=== PATIENT | male | born 1975 | race Caucasian/White ===

== ENCOUNTER 2017-02-13 19:27 | Emergency (ER) | payer OTHER ==
[2017-02-13 19:50] VITALS: BP 140/93
--- NOTE | 2017-02-14 04:56 | ED.ADGEN ---
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 Patient had arthroscopic surgery of right hip with repair labrum earlier this afternoon. Patient had bulky gauze bandage placed over surgical site. This evening, the patient states he twisted and a large amount of bright red blood gushed into the bandage. Zoll. Patient denies any drugs or complaints at this time. Review of Systems Review of Systems ROS as per HPI. Physical Exam Physical Exam Constitutional: Well developed, well nourished, no acute distress, non-toxic appearance. HENT: Normocephalic, atraumatic, bilateral external ears normal, oropharynx moist, no oral exudates, nose normal. Extremities: , Dried blood located on Steri-Strips upon bandage removal. No active bleeding or wound dehiscence. Appropriate postsurgical tenderness noted. Neurologic: Alert and oriented X 3, normal motor function, normal sensory function, no focal deficits noted. Psychologic: Affect normal, judgement normal, mood normal. Current Patient Data Vital Signs Vital Signs Date Time Temp Pulse Resp B/P (MAP) Pulse Ox O2 Delivery O2 Flow Rate FiO2 02/13/17 19:50 97.8 98 20 96 Room Air EKG EKG [] Radiology/Procedures Radiology/Procedures [] Course & Med Decision Making Course & Med Decision Making Pertinent Labs and Imaging studies reviewed. (See chart for details) [Postoperative bleeding resolved. Bandage changed. Patient instructed follow postsurgical instructions follow-up with orthopedic doctor tomorrow as needed.] Final Impression Final Impression [1. Postoperative bleeding] Problems: Dragon Disclaimer Dragon Disclaimer This electronic medical record was generated, in whole or in part, using a voice recognition dictation system. ELVIE SERRANO DO Feb 14, 2017 04:56
== END 2017-02-13 20:20 | disposition home or self-care (01) ==
LOC: ER 19:27
DX: K91.841 Postprocedural hemorrhage of a digestive system organ or structure following other procedure (principal)
CPT/HCPCS: 99283

== ENCOUNTER 2017-02-16 16:01 | Emergency (ER) | payer OTHER ==
[2017-02-16 16:10] VITALS: BP 130/95
--- NOTE | 2017-02-16 16:44 | PHYS DOC ---
Past History Past Medical History: No Pertinent History Past Surgical History: Other Alcohol Use: None Drug Use: None Adult General Chief Complaint Chief Complaint: postoperative bleeding HPI HPI Patient is a 41-year-old male who presents on crutches with his driving with the complaint of bleeding from his right hip surgical incisions. The patient had hip surgery on February 13. He has small incisions. He has been nonweightbearing on crutches, doing very little except for getting up to the bathroom. He had some bleeding on his incisions the first day and had it rechecked. Today, he had some bleeding from 2 of his 3 incisions that has soaked his bandage with blood and is concerning. He had been instructed that he could stop wearing the bandage today but he is continuing to bleed. He has not injured the area. He denies fever or chills. Denies increase in pain. Ortho Dr. Fall Review of Systems Review of Systems Constitutional: Denies fever or chills [] Musculoskeletal: Denies back pain or joint pain [] Integument: Denies rash or skin lesions [] Physical Exam Physical Exam Constitutional: Well developed, well nourished, no acute distress, non-toxic appearance. Alert, mentating normally. HENT: Normocephalic, atraumatic, bilateral external ears normal, nose normal. [ ] Eyes: conjunctiva normal, no discharge. [] Neck: Normal range of motion, no stridor. [] Skin: Warm, dry, no erythema, no rash. [] Extremities: No tenderness, no cyanosis, no clubbing, ROM intact, no edema. Right lateral hip area: There is a dressing taped in place that has some fresh blood and a small amount of old, dark blood on the dressing. A relatively small amount of blood overall, I would estimate less than or equal to 5 ML. The dressing was removed. There are 3 incisions. One is dry. The middle incision has had some recent red blood which is on the Steri-Strip. No blood is able to be expressed with gentle pressure. The lower incision has had a small amount of dark red blood and does have a little bit coming out which was wiped away with gauze. The skin of the operative area appears healthy. There is some ecchymosis which appears normal. There is no evidence of cellulitis, no swelling, no evidence of palpable or visible hematoma or seroma. Neurologic: Alert and oriented X 3, normal motor function, normal sensory function, no focal deficits noted. [] EKG EKG [] Radiology/Procedures Radiology/Procedures [] Course & Med Decision Making Course & Med Decision Making Pertinent Labs and Imaging studies reviewed. (See chart for details) 41-year-old male postop day 3 from some right hip surgery presents with some bright red blood and a little bit of dark blood on his incisions. He is not currently bleeding on evaluation. The amount of bleeding has been small. Although he was told he would likely be able to go without a bandage by now, I reassured him that this amount of blood and appearance of bleeding does not concern me at this time, I believe he can still continue to wear a bandage as needed and follow-up as planned. Bandage was replaced by ED nursing staff. [] Dragon Disclaimer Dragon Disclaimer This chart was dictated in whole or in part using Voice Recognition software in a busy, high-work load, and often noisy Emergency Department environment. It may contain unintended and wholly unrecognized errors or omissions. Departure Departure: Impression: Primary Impression: Postoperative bleeding from incision Disposition: 01 HOME, SELF-CARE Condition: STABLE Referrals: PCP,UNKNOWN (PCP) Additional Instructions: At this time, your postoperative bleeding does not appear abnormal or concerning. Continue to limit activity and protect your operating site. Continue to wear absorbent bandage as long as your incisions continue to have some bleeding. Keep your follow-up appointment as scheduled. RADHA ZIMMERMAN MD Feb 16, 2017 16:43
== END 2017-02-16 17:05 | disposition home or self-care (01) ==
LOC: ER 16:01
DX: M96.831 Postprocedural hemorrhage of a musculoskeletal structure following other procedure (principal)
CPT/HCPCS: 99283

== ENCOUNTER 2017-08-20 16:51 | Emergency (ER) | payer OTHER ==
[2017-08-20] MEDS ORDERED: IV NORMAL SALINE 1,000ML 1,000 ML IV SCH (17:30)
[2017-08-20] MEDS ORDERED: 0.9 % SODIUM CHLORIDE 10 ML DISP.SYRIN. IV PRN (17:30)
[2017-08-20] MEDS ORDERED: KETOROLAC 30 MG/ML VIAL. IV ONE (17:30)
--- NOTE | 2017-08-20 17:37 | PHYS DOC ---
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 Patient says the pain began gradually in the left lower quadrant described as a dull ache that has gotten progressively worse with localizing pain and sharp and stabbing in nature lasting 3-5 seconds and residual dull ache that is about moderate 7 of 10. He is also complaining of mild back pain now radiates up the mid back. The pains abdomen does not radiate across the right lower abdomen there are no UTI symptoms associated with it, no vomiting or diarrhea but there is mild nausea. Patient denies any fevers or chills, denies any direct trauma, antibiotics or hematuria. Patient further denies any direct trauma to the back although the back pain is not worsened with position it is worsened with rotational motion. Patient denies any night sweats, weight loss or travel outside the country. He denies any bowel or bladder incontinence with the back pain. He does not use IV drugs denies any rash or joint swelling. Review of Systems Review of Systems Constitutional: Denies fever or chills [] Eyes: Denies change in visual acuity, redness, or eye pain [] HENT: Denies nasal congestion or sore throat [] Respiratory: Denies cough or shortness of breath [] Cardiovascular: No additional information not addressed in HPI [] GI: Patient does complain of abdominal pain in the left lower quadrant with nausea but no vomiting diarrhea or bloody stools or constipation. He says his stools are "" normal : Denies dysuria or hematuria [] Musculoskeletal: Positive for back pain without night sweats weight loss or focal neurologic deficits Integument: Denies rash or skin lesions [] Neurologic: Denies headache, focal weakness or sensory changes [] Endocrine: Denies polyuria or polydipsia [] All other systems were reviewed and found to be within normal limits, except as documented in this note. Allergies Allergies Allergies Coded Allergies Type Severity Reaction Last Updated Verified Penicillins Allergy Unknown 08/20/17 Yes Physical Exam Physical Exam Of the vital signs recorded on the chart patient noted to be hypertensive. Constitutional: Well developed, well nourished, no acute distress, non-toxic appearance patient is lying flat for comfort. [] HENT: Normocephalic, atraumatic, bilateral external ears normal, oropharynx moist, no oral exudates, nose normal. [] Eyes: PERRLA, EOMI, conjunctiva normal, Cardiovascular:Heart rate regular rhythm, no murmur [] Lungs & Thorax: Bilateral breath sounds clear to auscultation [] Abdomen: Bowel sounds normal, patient has tenderness to palpation without masses pulsatile masses or rebound in the left lower quadrant. He does have some voluntary guarding. There is no Flor's or McBurney's point tenderness to palpation. He has negative heel tap Skin: Warm, dry, no erythema, no rash. [] Back: Mild midline tenderness to palpation over the thoracic spine over the erector spinae muscles. [] Extremities: No tenderness, no cyanosis, no clubbing, ROM intact, no edema. [] Neurologic: Alert and oriented X 3, normal motor function, normal sensory function, no focal deficits noted. [] Psychologic: Affect normal, judgement normal, mood normal. [] EKG EKG [] Radiology/Procedures Radiology/Procedures [] [place] [address] IMAGING REPORT Signed PATIENT: OLGA FLORENCE ACCOUNT: [id number] : 1975 LOCATION: ER AGE: 41 SEX: M EXAM STATUS: REG ER ORD. PHYSICIAN: ATUL ROQUE MD REASON: llq ab pain PROCEDURE: CT ABDOMEN PELVIS WO CONTRAST PQRS Compliance Statement: One or more of the following individualized dose reduction techniques were utilized for this examination: 1. Automated exposure control 2. Adjustment of the mA and/or kV according to patient size 3. Use of iterative reconstruction technique CT abdomen/pelvis without contrast 08/20/2017 5:41 PM INDICATION: Bilateral flank pain. Left lower quadrant pain. COMPARISON: None available TECHNIQUE: Multiple axial CT images of the abdomen and pelvis were obtained without intravenous contrast. Coronal and sagittal reformats are provided. FINDINGS: Visualized portions of the lung bases are clear. Heart size is within normal limits. Evaluation of the solid abdominal viscera is limited by lack of intravenous contrast. No suspicious hepatic masses are identified. Spleen, bilateral adrenal glands, and pancreas are normal in appearance. Gallbladder is present without adjacent inflammatory changes. Abdominal aorta is normal in course and caliber. There are no pathologically enlarged lymph nodes in abdomen or pelvis. There is no free fluid or free intraperitoneal air. Kidneys are symmetric in appearance. No renal calculi are identified. There is no hydronephrosis. No calculi are identified in the kidneys, ureters or urinary bladder. Small bladder diverticula are identified arising from the posterior wall of the urinary bladder. Urinary bladder wall is otherwise normal in thickness given degree of distention. Small large bowel are normal in caliber. No evidence for bowel obstruction. There is focal infiltration of the pericolonic fat adjacent to the distal descending colon. Consideration may be given for a focal colitis versus epiploic appendagitis versus omental infarct. Normal appendix is visualized. No suspicious pelvic masses are identified. No suspicious osseous lesions are identified. IMPRESSION: There is focal pericolonic inflammatory changes involving though distal descending colon. Consideration may be given for epiploic appendagitis versus omental infarct. Less likely consideration would include focal colitis. Electronically signed by: Juliana Soto MD (08/20/2017 6:09 PM) [facility] DICTATED AND SIGNED BY: JULIANA SOTO MD DATE: 08/20/171803 CC: ATUL ROQUE MD; PCP,UNKNOWN ~ Course & Med Decision Making Course & Med Decision Making Pertinent Labs and Imaging studies reviewed. (See chart for details) []he presents with left lower quadrant abdominal pain with voluntary guarding on physical exam. nAcute pancreatitis. Appendicitis. Acute hepatitis. Peptic ulcer disease. Nonulcer dyspepsia. Irritable bowel disease. Functional gallbladder disorder. Sphincter of Oddi dysfunction. Diseases of the right kidney. Right-sided pneumonia. Bfjs-Fphm-Lmylel syndrome Subhepatic or intraabdominal abscess. Perforated viscus. Cardiac ischemia., Diverticulitis, diverticulosis, Black spider envenomation UTI, pyonephritis, kidney stone, abdominal aneurysm, Care will be turned over to the oncoming physician Dr. Vences we will oversee patient 's medical treatment, disposition patient based on CAT scan findings and his lab results. I reassessed patient for enema shift and told him of this change and care. Time is now 6 PM 2004; Evaluation of patient in ER showed 41-year-old male patient with left lower quadrant pain for the last 2 days that getting worse today. Patient had tenderness and rebound tenderness in left lower quadrant. Patient had stable vital signs. Patient treated with morphine and felt better and rated his pain 5/ 10. Labs was unremarkable. CT abdomen and pelvis showed left lower quadrant inflammatory process possible omental infarct or colitis. On-call surgeon Dr. Jones at [facility] consulted at 1944 and recommended to stop the Levaquin and vancomycin and transfer patient to [facility]. Dr. Collier accepted admission at 2002. Patient and his family informed about plan of care and needs for transfer. Dragon Disclaimer Dragon Disclaimer This electronic medical record was generated, in whole or in part, using a voice recognition dictation system. Departure Departure: Impression: Primary Impression: Left lower quadrant pain Disposition: 02 XFER T-TRM HOSP ([facility] at 2002) Condition: IMPROVED Referrals: PCP,UNKNOWN (PCP) ATUL ROQUE MD Aug 20, 2017 17:37 RADHA RAMOS MD Aug 20, 2017 18:44
[2017-08-20] MEDS: ONDANSETRON PF 4 MG/2 ML VIAL. IV ONE ×2 (18:09→19:10)
--- NOTE | 2017-08-20 18:12 | RAD ---
PQRS Compliance Statement: One or more of the following individualized dose reduction techniques were utilized for this examination: 1. Automated exposure control 2. Adjustment of the mA and/or kV according to patient size 3. Use of iterative reconstruction technique CT abdomen/pelvis without contrast 08/20/2017 5:41 PM INDICATION: Bilateral flank pain. Left lower quadrant pain. COMPARISON: None available TECHNIQUE: Multiple axial CT images of the abdomen and pelvis were obtained without intravenous contrast. Coronal and sagittal reformats are provided. FINDINGS: Visualized portions of the lung bases are clear. Heart size is within normal limits. Evaluation of the solid abdominal viscera is limited by lack of intravenous contrast. No suspicious hepatic masses are identified. Spleen, bilateral adrenal glands, and pancreas are normal in appearance. Gallbladder is present without adjacent inflammatory changes. Abdominal aorta is normal in course and caliber. There are no pathologically enlarged lymph nodes in abdomen or pelvis. There is no free fluid or free intraperitoneal air. Kidneys are symmetric in appearance. No renal calculi are identified. There is no hydronephrosis. No calculi are identified in the kidneys, ureters or urinary bladder. Small bladder diverticula are identified arising from the posterior wall of the urinary bladder. Urinary bladder wall is otherwise normal in thickness given degree of distention. Small large bowel are normal in caliber. No evidence for bowel obstruction. There is focal infiltration of the pericolonic fat adjacent to the distal descending colon. Consideration may be given for a focal colitis versus epiploic appendagitis versus omental infarct. Normal appendix is visualized. No suspicious pelvic masses are identified. No suspicious osseous lesions are identified. IMPRESSION: There is focal pericolonic inflammatory changes involving though distal descending colon. Consideration may be given for epiploic appendagitis versus omental infarct. Less likely consideration would include focal colitis. Electronically signed by: Allison Lopez MD (08/20/2017 6:09 PM) [facility]
--- NOTE | 2017-08-20 18:18 | EKG ---
[address] [address] Test Date: 2017-08-20 Test Time: 17:38:30 Pat Name: OLGA FLORENCE Department: Room: Gender: M Fur Farmer: JOMAR : 1975 Requested By: ATUL ROQUE Order Number: [id number] Reading MD: Measurements Intervals [place] Rate: 77 P: 38 WV: 184 QRS: 52 QRSD: 132 T: 25 QT: 382 QTc: 434 Interpretive Statements SINUS RHYTHM NON SPECIFIC INTRAVENTRICULAR BLOCK QRS(T) CONTOUR ABNORMALITY CONSIDER INFERIOR MYOCARDIAL DAMAGE ABNORMAL ECG RI6.01 No previous ECG available for comparison
[2017-08-20 18:22] LABS: BASO % 0 % (0-3); EOS # 0.1 x10^3/uL (0.0-0.7); EOS % 1 % (0-3); HEMATOCRIT 42.7 % (39.0-53.0); HEMOGLOBIN 14.9 g/dL (13.0-17.5); LYMPH % 26 % (24-48); MEAN CORPUSCULAR HEMOGLOBIN 30 pg (25-35); MEAN CORPUSCULAR HGB CONC 35 g/dL (31-37); MEAN CORPUSCULAR VOLUME 85 fL (79-100); MONO # 0.7 x10^3/uL (0.0-1.1); MONO % 9 % (0-9); NEUT # 4.8 x10^3uL (1.8-7.7); NEUT % 64 % (31-73); PLATELET COUNT 269 x10^3/uL (140-400); RED BLOOD COUNT 5.05 x10^6/uL (4.30-5.70); RED CELL DISTRIBUTION WIDTH 13.6 % (11.5-14.5); WHITE BLOOD COUNT 7.6 x10^3/uL (4.0-11.0)
[2017-08-20 18:47] LABS: BACTERIA,URINE 0 /HPF (0-FEW); BILIRUBIN,URINE NEG (NEG); CLARITY,URINE CLEAR; COLOR,URINE STRAW; GLUCOSE,URINE NEG (NEG); NITRITE,URINE NEG (NEG); RBC,URINE 0 /HPF (0-2); SQUAMOUS EPITHELIAL CELL,UR OCC /LPF; UROBILINOGEN,URINE 0.2 mg/dL (0.2 mg/dL); WBC,URINE 0 /HPF (0-4)
[2017-08-20 18:49] LABS: CALCIUM 9.1 mg/dL (8.5-10.1); CREATININE 0.9 mg/dL (0.7-1.3); DIRECT BILIRUBIN 0.1 mg/dL (0.0-0.2); GFR 92.1; POTASSIUM 3.9 mmol/L (3.5-5.1); TOTAL BILIRUBIN 0.3 mg/dL (0.2-1.0); TOTAL PROTEIN 7.9 g/dL (6.4-8.2)
[2017-08-20] MEDS ORDERED: MORPHINE SULFATE 4 MG/ML DISP.SYRIN. IV ONE ×2 (19:00→21:30)
[2017-08-20 19:35] VITALS: BP 149/99
[2017-08-20] MEDS ORDERED: VANCOMYCIN 1 GM in IV NORMAL SALINE 250ML 250 ML IV ONE (19:45)
[2017-08-20] MEDS ORDERED: VANCOMYCIN 2 GM in IV NORMAL SALINE 500ML 500 ML IV ONE ×2 (20:00→21:00)
== END 2017-08-20 21:34 | disposition short-term general hospital (02) ==
LOC: ER 16:51
DX: R10.32 Left lower quadrant pain (principal); M54.89 Other dorsalgia; R11.0 Nausea; Z88.0 Allergy status to penicillin
CPT/HCPCS: 36415; 74176; 80048; 80076; 81001; 82553; 83690; 84484; 85025; 93005; 96361; 96365; 96375; 96376; 99285; J1885; J1956; J2270; J2405; J3370; J7040; J7030

== ENCOUNTER 2019-03-10 21:31 | Emergency (ER) | payer OTHER ==
[~2019-03-10] VITALS: Ht 182.9 cm; Wt 116.1 kg
[2019-03-10 21:46] VITALS: BP 137/101
--- NOTE | 2019-03-10 22:17 | PHYS DOC ---
Past History Past Medical History: No Pertinent History, Depression Past Surgical History: Other Additional Past Surgical Histo: surgery on the hip Additional Smoking Information: Dips Alcohol Use: Occasionally Drug Use: None Adult General Chief Complaint Chief Complaint: UPPER EXTREMITY SWELLING [facility] HPI 43-year-old male presents with right posterior elbow swelling. Patient service this started several days ago. He went to see his primary care physician who was concerned that it could be infectious bursitis. The patient was placed on an a ntibiotic. He has been taking his antibiotic as prescribed swelling seems to be a bit worse. He has a tingling sensation going down his forearm and up into his shoulder. He denies fever or chills. He denies trauma. He's never had anything like this denies history of gout or pseudogout. Review of Systems Review of Systems Constitutional: Denies fever or chills [] Eyes: Denies change in visual acuity, redness, or eye pain [] HENT: Denies nasal congestion or sore throat [] Respiratory: Denies cough or shortness of breath [] Cardiovascular: No additional information not addressed in HPI [] GI: Denies abdominal pain, nausea, vomiting, bloody stools or diarrhea [] : Denies dysuria or hematuria [] Musculoskeletal: Right elbow swelling[] Integument: Denies rash or skin lesions [] Neurologic: Denies headache, focal weakness or sensory changes [] Endocrine: Denies polyuria or polydipsia [] All other systems were reviewed and found to be within normal limits, except as documented in this note. Allergies Allergies Allergies Coded Allergies Type Severity Reaction Last Updated Verified Penicillins Allergy Unknown 08/20/17 Yes Physical Exam Physical Exam Constitutional: Well developed, well nourished, no acute distress, non-toxic appearance. [] HENT: Normocephalic, atraumatic, bilateral external ears normal, oropharynx moist, no oral exudates, nose normal. [] Eyes: PERRLA, EOMI, conjunctiva normal, no discharge. [] Neck: Normal range of motion, no tenderness, supple, no stridor. [] Cardiovascular:Heart rate regular rhythm, no murmur [] Lungs & Thorax: Bilateral breath sounds clear to auscultation [] Abdomen: Bowel sounds normal, soft, no tenderness, no masses, no pulsatile masses. [] Skin: Warm, dry, no erythema, no rash. [] Back: No tenderness, no CVA tenderness. [] Extremities: Swelling of the posterior right elbow, no erythema no tenderness. No warmth to the touch.[] Neurologic: Alert and oriented X 3, normal motor function, normal sensory function, no focal deficits noted. [] Psychologic: Affect normal, judgement normal, mood normal. [] Current Patient Data Vital Signs Vital Signs Date Time Temp Pulse Resp B/P (MAP) Pulse Ox O2 Delivery O2 Flow Rate FiO2 03/10/19 21:46 98.6 82 16 95 Room Air EKG EKG [] Radiology/Procedures Radiology/Procedures [] Course & Med Decision Making Course & Med Decision Making Pertinent Labs and Imaging studies reviewed. (See chart for details) This appears to be classic olecranon bursitis. I do not believe it is infectious. The patient is already on antibiotic. I have advised that he follow-up with his PCP to have it drained and/or get a referral to orthopedics to have it drained or surgically removed. Patient states understanding. He is stable for discharge at this time. [] Dragon Disclaimer Dragon Disclaimer This electronic medical record was generated, in whole or in part, using a voice recognition dictation system. Departure Departure: Impression: Primary Impression: Olecranon bursitis, right elbow Disposition: 01 HOME, SELF-CARE Condition: STABLE Referrals: PCP,UNKNOWN (PCP) Patient Instructions: Olecranon Bursitis, [id number] ELVIE PEDERSEN DO Mar 10, 2019 22:17
== END 2019-03-10 22:47 | disposition home or self-care (01) ==
LOC: ER 21:31
DX: M70.21 Olecranon bursitis, right elbow (principal); F17.200 Nicotine dependence, unspecified, uncomplicated; Z88.0 Allergy status to penicillin
CPT/HCPCS: 99281

== ENCOUNTER 2021-01-09 20:34 | Emergency (ER) | payer OTHER ==
[~2021-01-09] VITALS: Ht 182.9 cm; Wt 113.6 kg
[2021-01-09 20:45] VITALS: BP 121/86
--- NOTE | 2021-01-09 21:21 | RAD ---
Right fifth toe 3 views. HISTORY: Pain, trauma 3 views were taken of the right fifth toe. There is an oblique fracture through the proximal phalanx of the fifth toe. IMPRESSION: 1. Fracture proximal phalanx right fifth toe. Electronically signed by: Sai Low MD (01/09/2021 9:19 PM) [facility]
--- NOTE | 2021-01-09 21:40 | PHYS DOC ---
Past History Past Medical History: No Pertinent History, Depression Past Surgical History: Other Additional Past Surgical Histo: surgery on the hip Alcohol Use: None Drug Use: None Adult General Chief Complaint Chief Complaint: TOE PROBLEM HPI HPI Patient is a 45-year-old male who presents to the emergency department with chief complaint of right pinky toe pain after accidentally kicking his ottoman while getting up out of his recliner approximately 30 minutes prior to arrival. Patient states he did not take any pain medications prior to arrival reporting his pain is a 6 out of 10. Patient denies any loss of sensation to his right pinky toe. Patient denies any other physical complaints or physical injuries. Review of Systems Review of Systems 14 body systems of review of systems have been reviewed. See HPI for pertinent positives and negative responses, otherwise all other systems are negative, non pertinent or noncontributory. Allergies Allergies Allergies Coded Allergies Type Severity Reaction Last Updated Verified Penicillins Allergy Intermediate 01/09/21 Yes Physical Exam Physical Exam Constitutional: Well developed, well nourished, no acute distress, non-toxic appearance. 45-year-old male favors right lower extremity when ambulating. HENT: Normocephalic, atraumatic. Eyes: Conjunctiva normal, no discharge. Neck: Normal range of motion. Cardiovascular: No cyanosis appreciated, distal cap refill less than 2 seconds. Lungs & Thorax: Patient in no apparent respiratory distress, no adventitious lung sounds appreciated audibly. Skin: Warm, dry, no erythema, no rash. Back: No tenderness. Extremities: No tenderness, no cyanosis, no clubbing, ROM intact, no edema. Except for right pinky toe, mild swelling to lateral aspect proximal phalanx, no bruising appreciated, distal cap refill less than 2 seconds, minimal passive range of motion related to pain. No loss of sensation. Neurologic: Alert and oriented X 3, normal motor function, normal sensory function, no focal deficits noted. Psychologic: Affect normal, judgement normal, mood normal. Current Patient Data Vital Signs Vital Signs Date Time Temp Pulse Resp B/P (MAP) Pulse Ox O2 Delivery O2 Flow Rate FiO2 01/09/21 20:45 97.6 85 16 121/86 (98) 96 EKG EKG [] Radiology/Procedures Radiology/Procedures PATIENT: OLGA FLORENCE EACCOUNT: [id number] : 1975 LOCATION: ER AGE: 45 SEX: M EXAM STATUS: REG ER ORD. PHYSICIAN: JOZEF CONTRERAS APRN REASON: ATT PINKY TOE, PAIN, TRAUMA-KICKED OBJECT BAREFOOT PROCEDURE: TOES RIGHT Right fifth toe 3 views. HISTORY: Pain, trauma 3 views were taken of the right fifth toe. There is an oblique fracture through the proximal phalanx of the fifth toe. IMPRESSION: 1. Fracture proximal phalanx right fifth toe. Electronically signed by: Sai Low MD (01/09/2021 9:19 PM) [facility] DICTATED AND SIGNED BY: SAI LOW MD DATE: 01/09/212118 CC: JOZEF CONTRERAS APRN; EMERGENCY,DEPARTMENT; PCP,NO ~MTH0 0 Heart Score C/O Chest Pain: No Risk Factors: Risk Factors: DM, Current or recent (<one month) smoker, HTN, HLP, family history of CAD, obesity. Risk Scores: Risk Factors: DM, Current or recent (<one month) smoker, HTN, HLP, family history of CAD, obesity. Course & Med Decision Making Course & Med Decision Making Pertinent Labs and Imaging studies reviewed. (See chart for details) 45-year-old male, vital signs reviewed, presents emergency department concerning right pinky toe injury after accidentally kicking his ottoman while getting out of his recliner just approximately 30 minutes prior to arrival. Physical examination concerning for acute fracture versus contusion. Will order x-ray of right pinky toe. Offered patient pain medication, patient denied stating that he does not need it. X-ray imaging of right pinky toe shows proximal phalanx fracture per house radiologist interpretation, displacement was not indicated, wet read with ED attending physician Dr. Carter shows nondisplaced proximal phalanx fracture. Will becky tape, postop shoe, ice pack applications. Follow-up with orthopedic specialty. Patient gave verbal understanding of becky taping toes, postop shoe use, ice pack applications 30 minutes on 30 minutes off, follow-up with orthopedics this week for fractured right fifth toe proximal phalanx. [id number] Tylenol or Motrin for pain, return to ER precautions or concerns, patient was discharged home without incident. Dragon Disclaimer Dragon Disclaimer This electronic medical record was generated, in whole or in part, using a voice recognition dictation system. Departure Departure: Impression: Primary Impression: Fracture of fifth toe, right, closed Disposition: HOME / SELF CARE / HOMELESS Condition: GOOD Referrals: PCP,NO (PCP) Patient Instructions: Becky Taping of Toes, Toe Fracture Additional Instructions: You were seen today in the emergency department for an injury of your right pinky toe, the x-ray that was performed showed a fracture of the proximal phalanx, this is the bone of your toe that is most closest to your foot. The treatment for this is becky taping, wearing postop shoe. Ice applications 30 minutes on 30 minutes off while O wake to help prevent swelling and discomfort, you may use [id number] Tylenol and or Motrin for ongoing aches and pains, please follow-up with an orthopedic surgeon, you may use any epoxy specialist of your choice, you may consider using the [facility] group located at [address], [place] [address], telephone number [phone]. Please follow-up with a primary care physician for ongoing healthcare needs, you may consider using the [facility] group located at [address] [place] [address], telephone number [phone]. Please return to the emergency department for worsening symptoms or other concerns. EMERGENCY DEPARTMENT GENERAL DISCHARGE INSTRUCTIONS Thank you for coming to [facility] (ED) today and trusting us with you care. We trust that you had a positivie experience in our Emergency Department. If you wish to speak to the department management, you may call the director at [phone]. YOUR FOLLOW UP INSTRUCTIONS ARE FOLLOWS: 1. Do you have a private Doctor? If you do not have a private doctor, please ask for a resource list of physicians or clinics that may be able to assist you with follow up care. 2. The Emergency Physician has interpreted your x-rays. The X-Ray specialist will also review them. If there is a change in the findings, you will be notified in 48 hours when at all possible. 3. A lab test or culture has been done, your results will be reviewed and you will be notified if you need a change in treatment. ADDITIONAL INSTRUCTIONS AND INFORMATION: 1. Your care today has been supervised by a physician who is specially trained in emergency care. Many problems require more than one evaluation for a complete diagnosis and treatment. We recommend that you schedule your follow up appointment as recommended to ensure complete treatment of you illness or injury. If you are unable to obtain follow up care and continue to have a problem, or if your condition worsens, we recommend that you return to the ED. 2. We are not able to safely determine your condition over the phone nor are we able to give sound medical advice over the phone. For these safety reasons, if you call for medical advice we will ask you to come to the ED for further evaluation. 3. If you have any questions regarding these discharge instructions please call the ED at [phone]. SAFETY INFORMATION: In the interest of safety, wellness, and injury prevention; we encourage you to wear your sealbelt, if you smoke; quite smoking, and we encourage family to use a protective helmet for bicycling and other sporting events that present an increased risk for head injury. IF YOUR SYMPTOMS WORSEN OR NEW SYMPTOMS DEVELOP, OR YOU HAVE CONCERNS ABOUT YOUR CONDITION; OR IF YOUR CONDITION WORSENS WHILE YOU ARE WAITING FOR YOUR FOLLOW UP APPOINTMENT; EITHER CONTACT YOUR PRIMARY CARE DOCTOR, THE PHYSICIAN WHOSE NAME AND NUMBER YOU WERE GIVEN, OR RETURN TO THE ED IMMEDIATELY. Problem Qualifiers Primary Impression: Fracture of fifth toe, right, closed Encounter type: initial encounter Qualified Codes: S92.501A - Displaced unspecified fracture of right lesser toe(s), initial encounter for closed fracture JOZEF CONTRERAS APRN Jan 09, 2021 21:40
== END 2021-01-09 21:50 | disposition home or self-care (01) ==
LOC: ER 20:34
DX: S92.511A Displaced fracture of proximal phalanx of right lesser toe(s), initial encounter for closed fracture (principal); Z88.0 Allergy status to penicillin; W22.8XXA Striking against or struck by other objects, initial encounter; Y93.89 Activity, other specified; Y92.89 Other specified places as the place of occurrence of the external cause; Y99.8 Other external cause status
CPT/HCPCS: 73660; 99283